=== PATIENT | female | born 1990 ===

== ENCOUNTER → 2020-07-29 | Outpatient (CLI) | payer OTHER | END | disposition home or self-care (01) | LOC: PRENATAL 13:35 | PROVIDERS: ATTEND Obstetrics & Gynecology Maternal & Fetal Medicine | DX: O35.0XX1 Maternal care for (suspected) central nervous system malformation in fetus, fetus 1 (principal); O35.3XX1 Maternal care for (suspected) damage to fetus from viral disease in mother, fetus 1; O98.512 Other viral diseases complicating pregnancy, second trimester; Z36.89 Encounter for other specified antenatal screening; Z3A.22 22 weeks gestation of pregnancy ==

== ENCOUNTER → 2020-09-09 | Outpatient (CLI) | payer OTHER | END | disposition home or self-care (01) | LOC: PRENATAL 12:48 | PROVIDERS: ATTEND Obstetrics & Gynecology Maternal & Fetal Medicine | DX: O26.843 Uterine size-date discrepancy, third trimester (principal); O99.891 Other specified diseases and conditions complicating pregnancy; O99.213 Obesity complicating pregnancy, third trimester; Z36.89 Encounter for other specified antenatal screening; Z3A.28 28 weeks gestation of pregnancy ==